=== PATIENT | male | born 1985 | race Caucasian/White ===

== ENCOUNTER 2022-01-12 20:03 | Emergency (ER) | payer OTHER ==
[~2022-01-12] VITALS: Ht 175.3 cm; Wt 86.2 kg
[~2022-01-12 20:03] MED LIST: FLEXERIL PO; HYDROCODON-ACE1 EAC7 PO; MEDROLDOSEPACK PO; NOHOMEMEDICATIONS
[2022-01-12 20:10] VITALS: BP 131/83
[2022-01-12] MEDS ORDERED: AMOXIL 875 MG875 M1 PO (21:01)
[2022-01-12] MEDS ORDERED: APAP W/CODEINE1 TA2 PO (21:01)
== END 2022-01-12 21:19 | disposition home or self-care (01) ==
LOC: M.ERS 20:03
DX: K04.7 Periapical abscess without sinus (principal); G43.909 Migraine, unspecified, not intractable, without status migrainosus